=== PATIENT | male | born 1980 | race Caucasian/White ===

== ENCOUNTER 2019-01-28 08:14 | Day surgery (SDC) | payer OTHER ==
[~2019-01-28] VITALS: Ht 165.1 cm; Wt 103.2 kg
[2019-01-28 09:02] VITALS: Ht 165.1 cm; Wt 103.2 kg
[2019-01-28 09:04] VITALS: BP 121/72; PULSE 68; RESP 15
--- NOTE | 2019-01-28 09:20 | PREAC ---
Date/Time of Note Date/Time of Note DATE: 01/28/19 TIME: : Anesthesia Eval and Record Evaluation Time Pre-Procedure Interview DATE: 01/28/19 TIME: : Age 38 Sex male NPO: 8 hrs Preoperative diagnosis Abdominal Pain and CBH Planned procedure EGD & Colonoscopy Past Medical History Past Medical History: Includes Pulm: Smoking Hx, Asthma Surgery & Anesthesia Issues No known issue Meds Anticoagulation: No Beta Nancy within 24 hr: No Reason Beta Nancy not given: Pt. not on B-Nancy Reported Medications [none] No Conflict Check 01/28/19 Meds reviewed: Yes Allergies Coded Allergies: No Known Allergy (Unverified , 01/28/19) Allergies Reviewed: Yes Labs/Studies Labs Reviewed: Reviewed by anesthesiologist test: N/A Studies: ECG (n/a), CXR (n/a) Pre-procedure Exam Airway: Adequate mouth opening, Adequate thyromental dist Mallampati: Mallampati II Teeth: Normal Lung: Normal Heart: Normal ASA Physical Status ASA physical status: 2 Emergency: None Planned Anesthetic General/MAC: MAC Planned Pain Management Parenteral pain med Pre-operative Attestations Prior to commencing anesthesia and surgery, the patient was re-evaluated, there was verification of: *The patient's identity *The results of appropriate recent lab work and preoperative vital signs *The above evaluation not changing prior to induction *Anesthetic plan, risk benefits, alternative and complications discussed with patient/family; questions answered; patient/family understands, accepts and wishes to proceed. KRISTEL BRUNNER MD Jan 28, 2019 09:20
[2019-01-28] MEDS ORDERED: PROPOFOL 60 ML ONE (09:44)
--- NOTE | 2019-01-28 10:12 | PAC ---
Date/Time of Note Date/Time of Note DATE: 01/28/19 TIME: 10:12 Post-Anesthesia Notes Post-Anesthesia Note Last documented vital signs T: 98.0 Activity: WNL Respiratory function: WNL Cardiovascular function: WNL Mental status: Baseline Pain reasonably controlled: Yes Hydration appropriate: Yes Nausea/Vomiting absent: Yes KRISTEL BRUNNER MD Jan 28, 2019 10:12
[2019-01-28 10:20] VITALS: BP 115/75; PULSE 70
== END 2019-01-28 12:45 | disposition home or self-care (01) ==
LOC: GIL 08:14
PROVIDERS: ATTEND Internal Medicine Gastroenterology
DX: R19.4 Change in bowel habit (principal); K21.9 Gastro-esophageal reflux disease without esophagitis; K29.50 Unspecified chronic gastritis without bleeding; F17.200 Nicotine dependence, unspecified, uncomplicated; J45.909 Unspecified asthma, uncomplicated
CPT/HCPCS: 43239; 45378; 88305; 88312; Z7610